=== PATIENT | female | born 1950 | race Caucasian/White ===

== ENCOUNTER 2016-09-16 09:31 | Inpatient (IN) | payer MEDICARE, OTHER ==
[~2016-09-16 09:31] MED LIST: ADULT LOW DOSE81 M1 PO; ADULT LOW DOSE81 MG PO; ADVAIR 5001 DISK W/D INH; ALEVE220 M2 PO; ALTACE2.5 M3 PO; AMITIZA8 MC1 PO; AMITIZA8 MCG PO; AMOXICILLIN500 M1 PO; ARICEPT10 M2 PO; ARICEPT10 MG/TAB PO; ASPIRIN EC81 MG PO; BENZTROPINE ME0.5 M1 PO; BETAGAN5 M1 EACH EYE; CEFDINIR300 M1 PO; CHOLESTIPOL PO; COGENTIN PO; COLESTID1 GM PO; COMBIVENT INH14.7 GM INH; CPAP; CYMBALTA60 M1 PO; DULOXETINE HCL60 M1 PO; FLUTICASONE PRO16 G1; H PO; INVOKANA100 MG PO; IPRAT-ALBUT 0.5-3 ML INH; JANUVIA100 M1 PO; KLONOPIN2 M1 PO; KLONOPIN2 MG PO; LAMICTAL100 M2 PO; LAMICTAL200 M2 PO; LAMOTRIGINE25 M3 PO; LANTUS100 U/ML SQ; LANTUS100 UNITS/ SC; LASIX20 M1 PO; LEVAQUIN250 M1 PO; LEVOCETIRIZINE D5 M1 PO; LIPITOR40 M1 PO; LIPITOR40 MG PO; LISINOPRIL20 MG PO; LOVASTATIN20 MG; MAGNESIUM250 M1 PO; MECLIZINE HCL25 M3 PO; MELOXICAM15 M1 PO; METFORMIN HCL1000 M2 PO; METFORMIN HCL500 M4 PO; NAMENDA XR28 M1 PO; NAMENDA XR28 MG PO; NEURONTIN300 M1 PO; NITROGLYCERIN0.4 M2 SL; NORCO 5-325 TA1 EACH PO; NOVOLOG FL100 UNIT/1 SQ; NOVOLOG FL100 UNIT/2 SC; OMEPRAZOLE40 M2 PO; OXYCODONE-ACET1 EAC3 PO; PAXIL20 M1 PO; PAXIL40 M1 PO; PAXIL40 MG PO; PERCOCET 5-3251 EACH PO; PLAVIX75 MG PO; POTASSIUM CHLO10 ME2 PO; PRINIVIL5 M1 PO; PROAIR HFA8.5 GM INH; PROTONIX40 MG PO; SYMBICORT 160-1 PUFF INH; TYLENOL EXTRA500 M1 PO; VIBERZI; VIBERZI75 MG PO; VITAMIN B12; VITAMIN B12500 MCG PO; WELLBUTRIN SR150 M2 PO; XALATAN2.5 M1 EACH EYE; ZOFRAN ODT8 MG SL; ZOFRAN4 M2 PO; ZOFRAN4 MG PO; [UNRECOGNIZED DRUG - OTHER]
[2016-09-16] MEDS ORDERED: ULTRAM50 M1 PO (10:30)
[2016-09-16] MEDS ORDERED: XYZAL5 M1 PO (10:32)
[2016-09-16] MEDS ORDERED: LEVAQUIN750 M1 PO (10:33)
[2016-09-16] MEDS ORDERED: MIDODRINE HCL2.5 M1 PO (10:35)
[2016-09-16] MEDS ORDERED: LAMICTAL150 M1 PO (10:36)
[2016-09-16] MEDS ORDERED: LIPITOR40 M1 PO (10:37)
[2016-09-16 11:07] LABS: BASO % 0.4 % (0-2); EOS % 0.6 % (0-7); EOSINOPHIL ABSOLUTE COUNT 0.1 tho/cmm (0.0-0.7); HCT-HEMATOCRIT 42.9 % (34.0-49.0); HGB-HEMOGLOBIN 13.5 gm/dl (12.0-15.5); IMMATURE GRANULOCYTES ABSOLUTE 0.03 tho/cmm (0-0.03); IMMATURE GRANULOCYTES PERCENT 0.4 % (0-0.3); LYMPH % 15.3 % (20-45); LYMPH ABSOLUTE COUNT 1.2 tho/cmm (0.8-4.5); MCH (MEAN CORPUSCULAR HGB) 30.1 pg (28.0-32.0); MCHC MEAN CORPUSCULAR HGB CONC 31.5 % (32.0-36.0); MCV (MEAN CELL VOLUME) 95.5 fl (82.0-96.0); MEAN PLATELET VOLUME 8.7 cmc (9.4-12.4); MONO % 6.4 % (0-12); MONOCYTE ABSOLUTE COUNT 0.5 tho/cmm (0.0-1.2); NEUTROPHIL ABSOLUTE COUNT 6.2 tho/cmm (1.6-8.0); NEUTROPHIL-AUTOMATED 6.2 tho/cmm (1.6-8.0); NEUTROPHILS % 76.9 % (40-80); PLATELET COUNT 241 tho/cmm (150-450); RED BLOOD COUNT 4.49 mil/cmm (4.00-5.20); RED CELL DISTRIBUTION WIDTH 14.3 % (12.4-16.4); WHITE BLOOD COUNT 8.1 tho/cmm (4.0-10.0)
[2016-09-16] MEDS ORDERED: MEDROL4 M1 PO (11:33)
[2016-09-16 11:38] LABS: ANION GAP 14 mmol/L (0-20); BLOOD UREA NITROGEN 12 mg/dl (6-24); CALCIUM 8.6 mg/dl (8.5-10.5); CARBON DIOXIDE-VENOUS 27 mmol/L (22-32); CHLORIDE 105 mmol/l (96-110); CREATININE 1.05 mg/dl (0.50-1.10); GLUCOSE 95 mg/dL (70-110); POTASSIUM 4.3 mmol/L (3.7-5.1); SODIUM 142 mmol/L (135-145); eGFR VALUE FOR BLACK 64 mL/Min
[2016-09-16 15:31] LABS: PROCALCITONIN <0.05 ng/ml (0.05-0.09)
[2016-09-17 04:35] LABS: BASO % 0.4 % (0-2); HCT-HEMATOCRIT 40.1 % (34.0-49.0); HGB-HEMOGLOBIN 12.4 gm/dl (12.0-15.5); IMMATURE GRANULOCYTES ABSOLUTE 0.02 tho/cmm (0-0.03); IMMATURE GRANULOCYTES PERCENT 0.4 % (0-0.3); LYMPH % 23.9 % (20-45); LYMPH ABSOLUTE COUNT 1.1 tho/cmm (0.8-4.5); MCH (MEAN CORPUSCULAR HGB) 29.5 pg (28.0-32.0); MCHC MEAN CORPUSCULAR HGB CONC 30.9 % (32.0-36.0); MCV (MEAN CELL VOLUME) 95.2 fl (82.0-96.0); MEAN PLATELET VOLUME 8.8 cmc (9.4-12.4); MONO % 9.6 % (0-12); MONOCYTE ABSOLUTE COUNT 0.5 tho/cmm (0.0-1.2); NEUTROPHIL ABSOLUTE COUNT 3.1 tho/cmm (1.6-8.0); NEUTROPHIL-AUTOMATED 3.1 tho/cmm (1.6-8.0); NEUTROPHILS % 65.7 % (40-80); PLATELET COUNT 231 tho/cmm (150-450); RED BLOOD COUNT 4.21 mil/cmm (4.00-5.20); RED CELL DISTRIBUTION WIDTH 14.1 % (12.4-16.4); WHITE BLOOD COUNT 4.7 tho/cmm (4.0-10.0)
[2016-09-17 04:44] LABS: ANION GAP 11 mmol/L (0-20); BLOOD UREA NITROGEN 19 mg/dl (6-24); CALCIUM 8.8 mg/dl (8.5-10.5); CARBON DIOXIDE-VENOUS 28 mmol/L (22-32); CHLORIDE 107 mmol/l (96-110); CREATININE 0.92 mg/dl (0.50-1.10); GLUCOSE 139 mg/dL (70-110); POTASSIUM 4.2 mmol/L (3.7-5.1); SODIUM 142 mmol/L (135-145); eGFR VALUE FOR BLACK 75 mL/Min
[2016-09-18 05:44] LABS: ANION GAP 10 mmol/L (0-20); BLOOD UREA NITROGEN 20 mg/dl (6-24); CALCIUM 8.5 mg/dl (8.5-10.5); CARBON DIOXIDE-VENOUS 30 mmol/L (22-32); CHLORIDE 107 mmol/l (96-110); CREATININE 0.86 mg/dl (0.50-1.10); GLUCOSE 98 mg/dL (70-110); POTASSIUM 3.7 mmol/L (3.7-5.1); SODIUM 143 mmol/L (135-145); eGFR VALUE FOR BLACK 82 mL/Min
[2016-09-18 05:46] LABS: PLATELET COUNT 247 tho/cmm (150-450)
[2016-09-20 06:58] LABS: HGB-HEMOGLOBIN 13.1 gm/dl (12.0-15.5); PLATELET COUNT 269 tho/cmm (150-450)
[2016-09-21 04:44] LABS: BASO % 0.1 % (0-2); HCT-HEMATOCRIT 42.8 % (34.0-49.0); HGB-HEMOGLOBIN 13.8 gm/dl (12.0-15.5); IMMATURE GRANULOCYTES ABSOLUTE 0.22 tho/cmm (0-0.03); IMMATURE GRANULOCYTES PERCENT 2.2 % (0-0.3); LYMPH % 13.9 % (20-45); LYMPH ABSOLUTE COUNT 1.4 tho/cmm (0.8-4.5); MCHC MEAN CORPUSCULAR HGB CONC 32.2 % (32.0-36.0); MEAN PLATELET VOLUME 8.7 cmc (9.4-12.4); MONO % 1.6 % (0-12); MONOCYTE ABSOLUTE COUNT 0.2 tho/cmm (0.0-1.2); NEUTROPHIL ABSOLUTE COUNT 8.1 tho/cmm (1.6-8.0); NEUTROPHIL-AUTOMATED 8.1 tho/cmm (1.6-8.0); NEUTROPHILS % 82.2 % (40-80); PLATELET COUNT 283 tho/cmm (150-450); WHITE BLOOD COUNT 9.8 tho/cmm (4.0-10.0)
[2016-09-21 04:50] LABS: BLOOD UREA NITROGEN 20 mg/dl (6-24); CALCIUM 9.1 mg/dl (8.5-10.5); CARBON DIOXIDE-VENOUS 30 mmol/L (22-32); CHLORIDE 106 mmol/l (96-110); CREATININE 1.05 mg/dl (0.50-1.10); GLUCOSE 157 mg/dL (70-110); SODIUM 143 mmol/L (135-145); eGFR VALUE FOR BLACK 64 mL/Min
[2016-09-21 04:53] LABS: ANION GAP 12 mmol/L (0-20); MAGNESIUM 2.6 mg/dl (1.8-2.6); POTASSIUM 4.8 mmol/L (3.7-5.1)
[2016-09-22 04:32] LABS: BASO % 0.1 % (0-2); EOS % 0.1 % (0-7); HCT-HEMATOCRIT 41.4 % (34.0-49.0); IMMATURE GRANULOCYTES ABSOLUTE 0.22 tho/cmm (0-0.03); IMMATURE GRANULOCYTES PERCENT 1.5 % (0-0.3); LYMPH % 15.2 % (20-45); LYMPH ABSOLUTE COUNT 2.2 tho/cmm (0.8-4.5); MCH (MEAN CORPUSCULAR HGB) 29.6 pg (28.0-32.0); MCHC MEAN CORPUSCULAR HGB CONC 31.4 % (32.0-36.0); MCV (MEAN CELL VOLUME) 94.3 fl (82.0-96.0); MEAN PLATELET VOLUME 8.7 cmc (9.4-12.4); MONO % 5.6 % (0-12); MONOCYTE ABSOLUTE COUNT 0.8 tho/cmm (0.0-1.2); NEUTROPHIL ABSOLUTE COUNT 11.1 tho/cmm (1.6-8.0); NEUTROPHIL-AUTOMATED 11.1 tho/cmm (1.6-8.0); NEUTROPHILS % 77.5 % (40-80); PLATELET COUNT 282 tho/cmm (150-450); RED BLOOD COUNT 4.39 mil/cmm (4.00-5.20); RED CELL DISTRIBUTION WIDTH 14.3 % (12.4-16.4); WHITE BLOOD COUNT 14.3 tho/cmm (4.0-10.0)
[2016-09-22 04:48] LABS: BLOOD UREA NITROGEN 24 mg/dl (6-24); CALCIUM 8.7 mg/dl (8.5-10.5); CARBON DIOXIDE-VENOUS 31 mmol/L (22-32); CHLORIDE 106 mmol/l (96-110); CREATININE 1.01 mg/dl (0.50-1.10); GLUCOSE 96 mg/dL (70-110); SODIUM 143 mmol/L (135-145); eGFR VALUE FOR BLACK 67 mL/Min
[2016-09-22 04:53] LABS: ANION GAP 11 mmol/L (0-20); MAGNESIUM 2.4 mg/dl (1.8-2.6); POTASSIUM 4.5 mmol/L (3.7-5.1)
[2016-09-22] MEDS ORDERED: PREDNISONE10 M1 PO (15:05)
[2016-09-22] MEDS ORDERED: MUCINEX600 M1 PO (15:06)
[2016-09-22] MEDS ORDERED: SPIRIVA18 MC1 INH (15:08)
[2016-09-22] MEDS ORDERED: DIOVAN80 M1 PO (15:09)
== END 2016-09-22 17:35 | disposition home health service (06) | DRG 190 ==
LOC: EDMED 09:31 → EMR2 15:06 → 5WF 18:01
PROVIDERS: Emergency Medicine; Internal Medicine; Internal Medicine Cardiovascular Disease; Internal Medicine Critical Care Medicine; Physician Assistant; ADMIT Hospitalist
PROC: B246ZZZ Ultrasonography of Right and Left Heart (ICD-10-PCS; 2016-09-16)
PROC: 05HF33Z Insertion of Infusion Device into Left Cephalic Vein, Percutaneous Approach (ICD-10-PCS; principal; 2016-09-17)
PROC: B54NZZA Ultrasonography of Left Upper Extremity Veins, Guidance (ICD-10-PCS; principal; 2016-09-17)
PROC: 5A09357 Assistance with Respiratory Ventilation, Less than 24 Consecutive Hours, Continuous Positive Airway Pressure (ICD-10-PCS; 2016-09-19)
DX: J44.0 Chronic obstructive pulmonary disease with (acute) lower respiratory infection (principal); J96.01 Acute respiratory failure with hypoxia; I31.3 Pericardial effusion (noninflammatory); E66.2 Morbid (severe) obesity with alveolar hypoventilation; I65.22 Occlusion and stenosis of left carotid artery; J22 Unspecified acute lower respiratory infection; J44.1 Chronic obstructive pulmonary disease with (acute) exacerbation; I11.9 Hypertensive heart disease without heart failure; K74.69 Other cirrhosis of liver; E11.9 Type 2 diabetes mellitus without complications; E78.5 Hyperlipidemia, unspecified; F31.9 Bipolar disorder, unspecified; I25.10 Atherosclerotic heart disease of native coronary artery without angina pectoris; I73.9 Peripheral vascular disease, unspecified; K21.9 Gastro-esophageal reflux disease without esophagitis; R91.1 Solitary pulmonary nodule; Z68.36 Body mass index [BMI] 36.0-36.9, adult; Z79.4 Long term (current) use of insulin; Z87.891 Personal history of nicotine dependence; B97.81 Human metapneumovirus as the cause of diseases classified elsewhere; G30.9 Alzheimer's disease, unspecified; F02.80 Dementia in other diseases classified elsewhere, unspecified severity, without behavioral disturbance, psychotic disturbance, mood disturbance, and anxiety
CPT/HCPCS: C1751; G8978-GP-CJ; G8979-GP-CI; J0456; J1650; J1815; J2405; J2930; J7050; Q9967

== ENCOUNTER 2016-10-14 16:06 | Emergency (ER) | payer MEDICARE, OTHER ==
[~2016-10-14 16:06] MED LIST changes: +DIOVAN80 M1 PO; +LAMICTAL150 M1 PO; +LEVAQUIN750 M1 PO; +MEDROL4 M1 PO; +MIDODRINE HCL2.5 M1 PO; +MUCINEX600 M1 PO; +PREDNISONE10 M1 PO; +SPIRIVA18 MC1 INH; +ULTRAM50 M1 PO; +XYZAL5 M1 PO
[2016-10-14] MEDS ORDERED: LEVEMIR FL100 UNIT/2 SC (16:37)
[2016-10-14] MEDS ORDERED: VALSARTAN40 MG PO (16:38)
[2016-10-14] MEDS ORDERED: MIDODRINE HCL5 M1 PO (16:38)
[2016-10-14] MEDS ORDERED: RANEXA500 M1 PO (16:38)
[2016-10-14] MEDS ORDERED: GLUCOPHAGE1000 M1 PO (16:39)
[2016-10-14] MEDS ORDERED: WELLBUTRIN SR150 M2 PO (16:39)
[2016-10-14] MEDS ORDERED: INVOKANA100 MG PO (16:39)
[2016-10-14] MEDS ORDERED: LIPITOR40 M1 PO (16:40)
[2016-10-14] MEDS ORDERED: POTASSIUM CHLO10 ME1 PO (16:40)
[2016-10-14] MEDS ORDERED: XYZAL5 M1 PO (16:41)
[2016-10-14] MEDS ORDERED: LAMICTAL100 M2 PO (16:41)
[2016-10-14] MEDS ORDERED: NEURONTIN300 M1 PO (16:41)
[2016-10-14] MEDS ORDERED: LASIX20 M1 PO (16:42)
[2016-10-14] MEDS ORDERED: BENZTROPINE ME0.5 M1 PO (16:42)
[2016-10-14] MEDS ORDERED: ARICEPT10 M2 PO (16:42)
[2016-10-14] MEDS ORDERED: ZESTRIL2.5 M3 PO (16:43)
[2016-10-14] MEDS ORDERED: OMEPRAZOLE40 M2 PO (16:43)
[2016-10-14] MEDS ORDERED: CYMBALTA60 M1 PO (16:43)
[2016-10-14] MEDS ORDERED: NAMENDA XR28 M1 PO (16:44)
[2016-10-14] MEDS ORDERED: KLONOPIN2 M1 PO (16:44)
[2016-10-14] MEDS ORDERED: LOPERAMIDE2 M2 PO (16:44)
[2016-10-14] MEDS ORDERED: SPIRIVA18 MC1 INH (16:46)
[2016-10-14] MEDS ORDERED: PROAIR HFA8.5 GM INH (16:48)
[2016-10-14] MEDS ORDERED: NOVOLOG FL100 UNIT/2 SC (16:51)
[2016-10-14 17:08] LABS: BASO % 0.6 % (0-2); BASO ABSOLUTE COUNT 0.1 tho/cmm (0.0-0.2); EOS % 1.7 % (0-7); EOSINOPHIL ABSOLUTE COUNT 0.1 tho/cmm (0.0-0.7); HCT-HEMATOCRIT 37.2 % (34.0-49.0); IMMATURE GRANULOCYTES ABSOLUTE 0.05 tho/cmm (0-0.03); IMMATURE GRANULOCYTES PERCENT 0.6 % (0-0.3); LYMPH % 24.6 % (20-45); MCH (MEAN CORPUSCULAR HGB) 30.4 pg (28.0-32.0); MCHC MEAN CORPUSCULAR HGB CONC 32.3 % (32.0-36.0); MCV (MEAN CELL VOLUME) 94.2 fl (82.0-96.0); MEAN PLATELET VOLUME 8.7 cmc (9.4-12.4); MONO % 5.1 % (0-12); MONOCYTE ABSOLUTE COUNT 0.4 tho/cmm (0.0-1.2); NEUTROPHIL ABSOLUTE COUNT 5.5 tho/cmm (1.6-8.0); NEUTROPHIL-AUTOMATED 5.5 tho/cmm (1.6-8.0); NEUTROPHILS % 67.4 % (40-80); PLATELET COUNT 213 tho/cmm (150-450); RED BLOOD COUNT 3.95 mil/cmm (4.00-5.20); RED CELL DISTRIBUTION WIDTH 15.1 % (12.4-16.4); WHITE BLOOD COUNT 8.2 tho/cmm (4.0-10.0)
[2016-10-14 17:25] LABS: ANION GAP 13 mmol/L (0-20); BLOOD UREA NITROGEN 16 mg/dl (6-24); CALCIUM 8.5 mg/dl (8.5-10.5); CARBON DIOXIDE-VENOUS 28 mmol/L (22-32); CHLORIDE 104 mmol/l (96-110); CREATININE 1.07 mg/dl (0.50-1.10); GLUCOSE 106 mg/dL (70-110); SODIUM 140 mmol/L (135-145); eGFR VALUE FOR BLACK 63 mL/Min
[2016-10-14 17:30] LABS: POTASSIUM 4.5 mmol/L (3.7-5.1)
== END 2016-10-14 18:25 ==
LOC: EDMED 16:06
PROVIDERS: Emergency Medicine
DX: R55 Syncope and collapse (principal); E11.9 Type 2 diabetes mellitus without complications; I25.10 Atherosclerotic heart disease of native coronary artery without angina pectoris; J45.909 Unspecified asthma, uncomplicated; F31.9 Bipolar disorder, unspecified; M19.90 Unspecified osteoarthritis, unspecified site; E78.00 Pure hypercholesterolemia, unspecified; J44.9 Chronic obstructive pulmonary disease, unspecified; Z90.710 Acquired absence of both cervix and uterus
CPT/HCPCS: J2405; J7030

== ENCOUNTER 2016-10-22 09:54 | Inpatient (IN) | payer MEDICARE, OTHER ==
[~2016-10-22 09:54] MED LIST changes: +GLUCOPHAGE1000 M1 PO; +LEVEMIR FL100 UNIT/2 SC; +LOPERAMIDE2 M2 PO; +MIDODRINE HCL5 M1 PO; +POTASSIUM CHLO10 ME1 PO; +RANEXA500 M1 PO; +VALSARTAN40 MG PO; +ZESTRIL2.5 M3 PO
[2016-10-22] MEDS ORDERED: ASPIRIN EC81 MG PO (10:22)
[2016-10-22] MEDS ORDERED: BETAGAN5 M1 OP (10:22)
[2016-10-22] MEDS ORDERED: IPRAT-ALBUT 0.5-3 ML INH (10:25)
[2016-10-22] MEDS ORDERED: LEVEMIR FL100 UNIT/2 SC (10:26)
[2016-10-22] MEDS ORDERED: MUCINEX600 M1 PO (10:27)
[2016-10-22] MEDS ORDERED: NITROGLYCERIN0.4 M2 SL (10:28)
[2016-10-22] MEDS ORDERED: TYLENOL EXTRA500 M1 PO (10:31)
[2016-10-22 11:07] LABS: BASO % 0.2 % (0-2); EOS % 0.9 % (0-7); EOSINOPHIL ABSOLUTE COUNT 0.1 tho/cmm (0.0-0.7); HCT-HEMATOCRIT 38.8 % (34.0-49.0); HGB-HEMOGLOBIN 12.7 gm/dl (12.0-15.5); IMMATURE GRANULOCYTES ABSOLUTE 0.05 tho/cmm (0-0.03); IMMATURE GRANULOCYTES PERCENT 0.4 % (0-0.3); LYMPH % 15.3 % (20-45); LYMPH ABSOLUTE COUNT 1.9 tho/cmm (0.8-4.5); MCH (MEAN CORPUSCULAR HGB) 30.4 pg (28.0-32.0); MCHC MEAN CORPUSCULAR HGB CONC 32.7 % (32.0-36.0); MCV (MEAN CELL VOLUME) 92.8 fl (82.0-96.0); MEAN PLATELET VOLUME 8.6 cmc (9.4-12.4); MONO % 8.9 % (0-12); MONOCYTE ABSOLUTE COUNT 1.1 tho/cmm (0.0-1.2); NEUTROPHILS % 74.3 % (40-80); PLATELET COUNT 257 tho/cmm (150-450); RED BLOOD COUNT 4.18 mil/cmm (4.00-5.20); RED CELL DISTRIBUTION WIDTH 15.1 % (12.4-16.4); WHITE BLOOD COUNT 12.1 tho/cmm (4.0-10.0)
[2016-10-22 11:12] LABS: ABG CO2 ARTERIAL 26 mmol/L (21-27); ARTERIAL BLD GAS O2 SATURATION 89 % (95-98); ARTERIAL BLOOD GAS PCO2 40 mmHg (32-45); ARTERIAL PO2 57 mmHg (70-100); BICARBONATE 24 mmol/L (21-28); BLOOD GAS BASE EXCESS 0 mM/L (-/+3)
[2016-10-22 11:24] LABS: URINE BILIRUBIN NEGATIVE (NEG); URINE BLOOD MODERATE (NEG); URINE GLUCOSE (UA) NEGATIVE (NEG); URINE KETONE NEGATIVE (NEG); URINE LEUKOCYTE ESTERASE POSITIVE (NEG); URINE NITRITE NEGATIVE (NEG); URINE PROTEIN MODERATE (NEG); URINE SPECIFIC GRAVITY 1.015 (1.003-1.030)
[2016-10-22 11:32] LABS: URINE APPEARANCE CLOUDY; URINE COLOR DARK YELLOW
[2016-10-22 11:34] LABS: ALB/GLOB RATIO 0.9 (0.8-2.0); ALBUMIN 3.3 g/dl (3.5-5.0); ALKALINE PHOSPHATASE 74 U/L (33-138); ALT/SGPT 28 U/L (12-78); ANION GAP 14 mmol/L (0-20); AST/SGOT 21 U/L (10-40); BILIRUBIN,TOTAL 0.8 mg/dl (0-1.5); BLOOD UREA NITROGEN 10 mg/dl (6-24); CALCIUM 8.7 mg/dl (8.5-10.5); CARBON DIOXIDE-VENOUS 27 mmol/L (22-32); CHLORIDE 103 mmol/l (96-110); CREATININE 0.84 mg/dl (0.50-1.10); GLUCOSE 115 mg/dL (70-110); SODIUM 140 mmol/L (135-145); eGFR VALUE FOR BLACK 84 mL/Min
[2016-10-22 11:38] LABS: PROCALCITONIN 0.07 ng/ml (0.05-0.09)
[2016-10-22 11:43] LABS: URINE WBC 25-30 /[HPF] (0-5)
[2016-10-22 11:46] LABS: URINE BACTERIA 2+
[2016-10-22] MEDS ORDERED: LOPERAMIDE2 M2 PO (12:46)
[2016-10-23 05:49] LABS: BASO % 0.1 % (0-2); HCT-HEMATOCRIT 36.7 % (34.0-49.0); HGB-HEMOGLOBIN 11.8 gm/dl (12.0-15.5); IMMATURE GRANULOCYTES ABSOLUTE 0.05 tho/cmm (0-0.03); IMMATURE GRANULOCYTES PERCENT 0.6 % (0-0.3); LYMPH % 12.1 % (20-45); MCH (MEAN CORPUSCULAR HGB) 29.8 pg (28.0-32.0); MCHC MEAN CORPUSCULAR HGB CONC 32.2 % (32.0-36.0); MCV (MEAN CELL VOLUME) 92.7 fl (82.0-96.0); MEAN PLATELET VOLUME 8.6 cmc (9.4-12.4); MONO % 2.2 % (0-12); MONOCYTE ABSOLUTE COUNT 0.2 tho/cmm (0.0-1.2); NEUTROPHIL ABSOLUTE COUNT 7.3 tho/cmm (1.6-8.0); NEUTROPHIL-AUTOMATED 7.3 tho/cmm (1.6-8.0); PLATELET COUNT 263 tho/cmm (150-450); RED BLOOD COUNT 3.96 mil/cmm (4.00-5.20); RED CELL DISTRIBUTION WIDTH 14.8 % (12.4-16.4); WHITE BLOOD COUNT 8.6 tho/cmm (4.0-10.0)
[2016-10-23 06:07] LABS: ANION GAP 13 mmol/L (0-20); BLOOD UREA NITROGEN 13 mg/dl (6-24); CARBON DIOXIDE-VENOUS 27 mmol/L (22-32); CHLORIDE 106 mmol/l (96-110); SODIUM 142 mmol/L (135-145); eGFR VALUE FOR BLACK 77 mL/Min
[2016-10-23 06:15] LABS: GLUCOSE 218 mg/dL (70-110)
[2016-10-24] MEDS ORDERED: OMNICEF PO (17:11)
[2016-10-24] MEDS ORDERED: PREDNISONE10 M1 PO (17:12)
== END 2016-10-24 18:40 | disposition home health service (06) | DRG 190 ==
LOC: EDMED 09:54 → EMR2 12:41 → CAR1 14:22
PROVIDERS: Emergency Medicine; Family Medicine; Nurse Practitioner; ADMIT Hospitalist
DX: J44.1 Chronic obstructive pulmonary disease with (acute) exacerbation (principal); J96.01 Acute respiratory failure with hypoxia; N39.0 Urinary tract infection, site not specified; K74.60 Unspecified cirrhosis of liver; G30.9 Alzheimer's disease, unspecified; F02.80 Dementia in other diseases classified elsewhere, unspecified severity, without behavioral disturbance, psychotic disturbance, mood disturbance, and anxiety; E78.5 Hyperlipidemia, unspecified; I25.10 Atherosclerotic heart disease of native coronary artery without angina pectoris; G47.33 Obstructive sleep apnea (adult) (pediatric); E11.9 Type 2 diabetes mellitus without complications; F31.9 Bipolar disorder, unspecified; K21.9 Gastro-esophageal reflux disease without esophagitis; B97.89 Other viral agents as the cause of diseases classified elsewhere; Z87.891 Personal history of nicotine dependence; Z88.8 Allergy status to other drugs, medicaments and biological substances; Z91.041 Radiographic dye allergy status; Z79.82 Long term (current) use of aspirin; Z79.4 Long term (current) use of insulin; Z79.899 Other long term (current) drug therapy; Z95.5 Presence of coronary angioplasty implant and graft; Z96.652 Presence of left artificial knee joint
CPT/HCPCS: G8978-GP-CI; G8978-GP-CJ; G8979-GP-CI; J0456; J0696; J1650; J1815; J2930; J7030; J7050; J7512

== ENCOUNTER 2016-10-31 12:23 | Observation (INO) | payer MEDICARE, OTHER ==
[~2016-10-31 12:23] MED LIST changes: +BETAGAN5 M1 OP; +OMNICEF PO
[2016-10-31] MEDS ORDERED: CEFDINIR300 M1 PO (12:41)
[2016-10-31] MEDS ORDERED: PREDNISONE10 M1 PO (13:12)
[2016-10-31] MEDS ORDERED: XALATAN2.5 M1 OP (13:16)
[2016-10-31] MEDS ORDERED: MIDODRINE HCL5 M1 PO (13:16)
[2016-10-31 13:22] LABS: BASO % 0.2 % (0-2); BASO ABSOLUTE COUNT 0.1 tho/cmm (0.0-0.2); EOS % 0.1 % (0-7); HCT-HEMATOCRIT 40.7 % (34.0-49.0); HGB-HEMOGLOBIN 13.1 gm/dl (12.0-15.5); IMMATURE GRANULOCYTES ABSOLUTE 0.89 tho/cmm (0-0.03); IMMATURE GRANULOCYTES PERCENT 4.3 % (0-0.3); LYMPH % 12.3 % (20-45); LYMPH ABSOLUTE COUNT 2.5 tho/cmm (0.8-4.5); MCH (MEAN CORPUSCULAR HGB) 30.5 pg (28.0-32.0); MCHC MEAN CORPUSCULAR HGB CONC 32.2 % (32.0-36.0); MCV (MEAN CELL VOLUME) 94.7 fl (82.0-96.0); MEAN PLATELET VOLUME 8.7 cmc (9.4-12.4); MONO % 3.5 % (0-12); MONOCYTE ABSOLUTE COUNT 0.7 tho/cmm (0.0-1.2); NEUTROPHIL ABSOLUTE COUNT 16.3 tho/cmm (1.6-8.0); NEUTROPHIL-AUTOMATED 16.3 tho/cmm (1.6-8.0); NEUTROPHILS % 79.6 % (40-80); PLATELET COUNT 247 tho/cmm (150-450); RED CELL DISTRIBUTION WIDTH 15.8 % (12.4-16.4); WHITE BLOOD COUNT 20.5 tho/cmm (4.0-10.0)
[2016-10-31 13:39] LABS: ANION GAP 18 mmol/L (0-20); BLOOD UREA NITROGEN 20 mg/dl (6-24); CARBON DIOXIDE-VENOUS 29 mmol/L (22-32); CHLORIDE 104 mmol/l (96-110); CREATININE 1.23 mg/dl (0.50-1.10); GLUCOSE 119 mg/dL (70-110); POTASSIUM 4.5 mmol/L (3.7-5.1); SODIUM 146 mmol/L (135-145); eGFR VALUE FOR BLACK 53 mL/Min
[2016-11-01 06:01] LABS: ANION GAP 10 mmol/L (0-20); BLOOD UREA NITROGEN 20 mg/dl (6-24); CALCIUM 8.3 mg/dl (8.5-10.5); CARBON DIOXIDE-VENOUS 32 mmol/L (22-32); CHLORIDE 107 mmol/l (96-110); CHOLESTEROL 126 mg/dl (120-200); GLUCOSE 82 mg/dL (70-110); HDL CHOLESTEROL 52 mg/dl (40-60); LDL CHOLESTEROL 44 mg/dl (0-99); SODIUM 145 mmol/L (135-145); VLDL 31 mg/dl (0-30); eGFR VALUE FOR BLACK 68 mL/Min
[2016-11-01 06:04] LABS: TRIGLYCERIDES 153 mg/dl (<149)
== END 2016-11-01 15:55 ==
LOC: EDMED 12:23 → EMR2 16:47 → CAR1 19:05
PROVIDERS: Emergency Medicine; Nurse Practitioner Family; ADMIT Internal Medicine Cardiovascular Disease
PROC: B2111ZZ Fluoroscopy of Multiple Coronary Arteries using Low Osmolar Contrast (ICD-10-PCS; principal; 2016-11-01)
DX: I25.110 Atherosclerotic heart disease of native coronary artery with unstable angina pectoris (principal); I10 Essential (primary) hypertension; E11.9 Type 2 diabetes mellitus without complications; J44.9 Chronic obstructive pulmonary disease, unspecified; J45.909 Unspecified asthma, uncomplicated; D72.829 Elevated white blood cell count, unspecified; Z79.4 Long term (current) use of insulin; Z79.52 Long term (current) use of systemic steroids; Z79.82 Long term (current) use of aspirin; Z79.84 Long term (current) use of oral hypoglycemic drugs; Z79.899 Other long term (current) drug therapy; Z88.8 Allergy status to other drugs, medicaments and biological substances; Z91.041 Radiographic dye allergy status; Z82.49 Family history of ischemic heart disease and other diseases of the circulatory system; Z87.891 Personal history of nicotine dependence; Z90.710 Acquired absence of both cervix and uterus; Z98.890 Other specified postprocedural states
CPT/HCPCS: C1894; G0378; J1200; J1644; J1720; J1815; J2250; J2270; J3010; J7030; Q9967